=== PATIENT | female | born 1995 | race American Indian/Alaskan Native ===

== ENCOUNTER 2021-09-16 12:57 | Emergency (ER) | payer MEDICAID ==
[2021-09-16 13:16] VITALS: BP 141/83
[2021-09-16] MEDS ORDERED: HYDROmorphone 1 MG/1 ML INJ IV ONE ×3 (15:42→20:48)
--- NOTE | 2021-09-16 15:46 | Emergency Department Report ---
<BETO GRAY - Last Filed: 09/16/21 22:20> ED General Adult HPI - General Chief complaint: Fall Stated complaint: FALL Time Seen by Provider: 09/16/21 15:22 - Related Data Home Medications Medication Instructions Recorded Confirmed Last Taken Cyclobenzaprine [Flexeril] 10 mg PO TID PRN 09/16/21 09/16/21 Unknown Meloxicam [Mobic] 15 mg PO DAILY 09/16/21 09/16/21 Unknown Previous Rx's Medication Instructions Recorded Last Taken Type Acetaminophen [Non-Aspirin Extra 500 mg PO Q6HR PRN #30 tablet 09/16/21 Unknown Rx Strength] Ibuprofen [Motrin] 600 mg PO Q8H PRN #30 tablet 09/16/21 Unknown Rx Metoclopramide [Reglan] 10 mg PO QID PRN #30 tablet 09/16/21 Unknown Rx Allergies Allergy/AdvReac Type Severity Reaction Status Date / Time No Known Allergies Allergy Verified 09/16/21 13:12 ED Past Medical Hx - Medications Home Medications: Home Medications Medication Instructions Recorded Confirmed Last Taken Type Acetaminophen [Non-Aspirin Extra 500 mg PO Q6HR PRN #30 tablet 09/16/21 Unknown Rx Strength] Cyclobenzaprine [Flexeril] 10 mg PO TID PRN 09/16/21 09/16/21 Unknown History Ibuprofen [Motrin] 600 mg PO Q8H PRN #30 tablet 09/16/21 Unknown Rx Meloxicam [Mobic] 15 mg PO DAILY 09/16/21 09/16/21 Unknown History Metoclopramide [Reglan] 10 mg PO QID PRN #30 tablet 09/16/21 Unknown Rx ED Medical Decision Making - Medical Decision Making Patient signed out to me by Dr. Redding. Imaging results reviewed. No acute injury noted. Patient received additional pain medication and will be discharged with prescriptions prepped by Dr. Redding ED Disposition Clinical Impression: Closed head injury, Neck pain, Back pain, BMI greater than 40, Fall Disposition: 01 HOME / SELF CARE / HOMELESS Is pt being admited?: No Condition: Good Instructions: Back Pain in , Head Injury, Adult, [id number] Additional Instructions: As we discussed, pain typically gets worse before it gets better following and blunt trauma rest and avoid heavy lifting, and avoid strenuous physical activity. Engage in physical activities as tolerated. Do not engage in sports, or contact athletics until cleared to do so by her primary care doctor. For pain, the patient can take ibuprofen, 600 mg with food every 6 hours, alternating with acetaminophen, 650 mg every 4 hours, also which can be purchased [id number]. Return to the ER right away with new pain, worsened pain, migration of pain, fevers, chills, confusion, weakness, numbness, intractable nausea or vomiting, severe chest pain, or severe abdominal pain. Follow-up with your primary care doctor within the next week. Follow-up with a legal support specialist such as [facility] within the next week. Please return to the emergency room right away with new pain, worsened pain, migration of pain, projectile vomiting, change in mental status, confusion, inability tolerate liquid feeds, new, worsened or different symptoms not present on the initial emergency room evaluation Prescriptions: Ibuprofen [Motrin] 600 mg PO Q8H PRN #30 tablet PRN Reason: Pain Acetaminophen [Non-Aspirin Extra Strength] 500 mg PO Q6HR PRN #30 tablet PRN Reason: Pain , Severe (7-10) Metoclopramide [Reglan] 10 mg PO QID PRN #30 tablet PRN Reason: Nausea Referrals: [facility] [Provider Group] - 3-5 Days [facility] [Provider Group] - 3-5 Days Forms: Work/School Release Form(ED) <ANDREW REDDING - Last Filed: 09/18/21 15:10> ED General Adult HPI - General Source: patient, RN notes reviewed Mode of arrival: Ambulatory Limitations: No Limitations - History of Present Illness Initial comments: During the history and physical examination, I am chaperoned by nurse Gloria Kinney. The patient is a 26-year-old female with a past medical history of body mass ind ex of 40.7, who reports that she is not , reports that she has not delivered her given in the past 6 weeks, who presents to the ER today with of complaint of diffuse back pain, headache, and shoulder pain after mechanical fall down 15 stairs. Prior to the fall, the patient reports that she was in her usual state of health. The patient thinks that she passed out, but she is not sure. She denies weakness and numbness. Denies chest pain and abdominal pain. -: Sudden Location: head, neck, back Quality: aching Consistency: constant Improves with: rest Worsens with: movement ED Review of Systems ROS: Stated complaint: FALL Other details as noted in HPI Constitutional: denies: fever Eyes: denies: vision change ENT: denies: ear pain Respiratory: denies: wheezing Cardiovascular: denies: chest pain Gastrointestinal: denies: abdominal pain Musculoskeletal: arthralgia, myalgia Neurological: headache. denies: weakness ED Past Medical Hx - Past Medical History Previous Medical History?: No - Surgical History Past Surgical History?: No - Social History Smoking Status: Never Smoker Substance Use Type: None ED Physical Exam - General Limitations: Physical Limitation General appearance: alert, anxious, obese - Head Head exam: Present: atraumatic, normocephalic - Eye Eye exam: Present: normal appearance, EOMI. Absent: nystagmus - ENT ENT exam: Present: normal exam, normal orophraynx, mucous membranes moist, n ormal external ear exam - Neck Neck exam: Present: normal inspection, tenderness. Absent: meningismus - Respiratory Respiratory exam: Present: normal lung sounds bilaterally. Absent: respiratory distress, wheezes, rales, rhonchi, stridor, chest wall tenderness - Cardiovascular Cardiovascular Exam: Present: regular rate, normal rhythm, normal heart sounds. Absent: bradycardia, tachycardia, irregular rhythm, systolic murmur, diastolic murmur, rubs, gallop - GI/Abdominal GI/Abdominal exam: Present: soft. Absent: distended, tenderness, guarding, rebound, rigid, pulsatile mass - Extremities Exam Extremities exam: Present: normal inspection, full ROM, other (2+ pulses noted in the bilateral upper and lower extremities. There is no palpable cord. negative Homans sign. Muscular compartments are soft. The pelvis is stable.). Absent: pedal edema, calf tenderness - Back Exam Back exam: Present: normal inspection, paraspinal tenderness, vertebral tendern ess. Absent: tenderness, CVA tenderness (R), CVA tenderness (L) - Neurological Exam Neurological exam: Present: alert, oriented X3, other (No facial droop. Tongue midline. Extraocular movements intact bilaterally. Facial sensation intact to light touch in V1, V2, V3 distribution bilaterally. 5 and a 5 strength in 4 extremities. Sensation intact to light touch in 4 extremities.) - Psychiatric Psychiatric exam: Present: anxious - Skin Skin exam: Present: warm, dry, intact, normal color. Absent: rash ED Course Vital Signs 09/16/21 09/16/21 13:15 13:50 Temperature 97.9 F Pulse Rate 85 Respiratory 16 Rate Blood Pressure 141/83 [Left] O2 Sat by Pulse 98 99 Oximetry - Reevaluation(s) Reevaluation #1: 09/16/21 18:27 Differential diagnosis, including the not limited to: Closed head injury, sprain, strain, fracture, dislocation Assessment and plan: 26-year-old female, status post mechanical fall down 15 stairs, with headache, neck pain and back pain, clinically sober with a GCS of 15, who reports that she is not . Place patient on court monitor. Obtain stat CT scan of the brain, CT and L- spine. Maintain spinal precautions and C-spine immobilization. Treat patient's symptoms. Obtain x-ray of chest and pelvis. Discussed this with the patient. She is agreeable to this plan of care. Currently awaiting CT scan results. Care be transferred to the oncoming ER provider, to follow-up on CT scans, x-rays, and arrange for final disposition ED Medical Decision Making - Lab Data Vital Signs 09/16/21 09/16/21 13:15 13:50 Temperature 97.9 F Pulse Rate 85 Respiratory 16 Rate Blood Pressure 141/83 [Left] O2 Sat by Pulse 98 99 Oximetry - Radiology Data Radiology results: pending, report reviewed, image reviewed [facility] [address] [place] [address] Cat Scan Report Signed Patient: LEELEE PORTER MR#: [id number] : 1995 Acct:[id number] Age/Sex: 26 / F ADM Date: 09/16/21 Loc: ED Attending Dr: Ordering Physician: ANDREW REDDING MD Date of Service: 09/16/21 Procedure(s): CT cervical spine wo con Accession Number(s): [id number] cc: ANDREW REDDING MD CT cervical spine wo con INDICATION / CLINICAL INFORMATION: 26 years Female; Neck pain status post fall. TECHNIQUE: Axial CT images of the cervical spine were obtained. Sagittal and coronal reformatted images were produced. All CT scans at this location are performed using CT dose reduction for ALARA by means of automated exposure control. Some motion artifact. COMPARISON: None available. FINDINGS: POST-SURGICAL CHANGES: None. ALIGNMENT: Straightening of the cervical spine noted, which may be related to patient positioning. VERTEBRAE: No signs of fracture. Vertebral bodies are grossly normal in height throughout. No significant facet joint disease or osseous foraminal narrowing appreciated. INTRAVERTEBRAL DISCS: Disc spaces are fairly well-maintained throughout without significant canal stenosis. PARASPINAL SOFT TISSUES: No significant abnormality. ADDITIONAL FINDINGS: None. IMPRESSION: 1. No signs of acute bony trauma to the cervical spine. Signer Name: Rudy Dsouza MD, III Signed: 09/16/2021 8:08 PM Workstation Name: [id number] Transcribed By: HR Dictated By: Rudy Dsouza MD Electronically Authenticated By: Rudy Dsouza MD Signed Date/Time: 09/16/212007 DD/ 05 [facility] [address] [place] [address] Cat Scan Report Signed Patient: LEELEE PORTER MR#: [id number] : 1995 Acct:[id number] Age/Sex: 26 / F ADM Date: 09/16/21 Loc: ED Attending Dr: Ordering Physician: ANDREW REDDING MD Date of Service: 09/16/21 Procedure(s): CT lumbar spine wo con Accession Number(s): [id number] cc: ANDREW REDDING MD CT lumbar spine wo con INDICATION / CLINICAL INFORMATION: 26 years Female; Back pain status post fall. TECHNIQUE: Axial CT images of the lumbar spine were obtained. Sagittal and coronal reformatted images were produced. All CT scans at this location are performed using CT dose reduction for ALARA by means of automated exposure control. COMPARISON: None available. FINDINGS: POST- SURGICAL CHANGES: None. ALIGNMENT: There is slight anterolisthesis of L5 with respect to S1, related to bilateral spondylolysis-this finding appears to be on a chronic basis. VERTEBRAE: No signs of fracture. Vertebral bodies are grossly normal in height throughout. Minimal facet hypertrophy seen at various levels. Mild to moderate foraminal narrowing seen bilaterally at L5-S1, related to disc disease and minimal spondylosis, combined with the listhesis associated with spondylolysis. INTERVERTEBRAL DISCS: No dominant herniation or canal stenosis appreciated. Mild disc bulge is seen at L5-S1, with small left paracentral disc protrusion. Minimal disc bulge seen at L4-5. PARASPINAL SOFT TISSUES: No significant abnormality. ADDITIONAL FINDINGS: IUD noted. IMPRESSION: 1. No signs of acute bony trauma to the lumbar spine. 2. Bilateral spondylolysis seen at L5, with minimal spondylolisthesis. Signer Name: Rudy Dsouza MD, III Signed: 09/16/2021 8:15 PM Workstation Name: [id number] Transcribed By: Dictated By: Rudy Dsouza MD Electronically Authenticated By: Rudy Dsouza MD Signed Date/Time: 09/16/212014 DD/ [address] [address] XRay Report Signed Patient: LEELEE PORTER MR#: [id number] : 1995 Acct:[id number] Age/Sex: 26 / F ADM Date: 09/16/21 Loc: ED Attending Dr: Ordering Physician: ANDREW REDDING MD Date of Service: 09/16/21 Procedure(s): XR pelvis 1-2V Accession Number(s): [id number] cc: ANDREW REDDING MD Fluoro Time In Minutes: PELVIS 1 VIEW(S) INDICATION / CLINICAL INFORMATION: Fall downstairs, lower back pain COMPARISON: None available. FINDINGS: BONES / JOINT(S): No acute fracture or subluxation. No significant arthritis. SOFT TISSUES: No significant abnormality. ADDITIONAL FINDINGS: None. Signer Name: Damian Avila MD Signed: 09/16/2021 9:18 PM Workstation Name: [id number] Transcribed By: SB Dictated By: DAMIAN AVILA MD Electronically A uthenticated By: DAMIAN AVILA MD Signed Date/Time: 09/16/212117 DD/ [address] [address] XRay Report Signed Patient: LEELEE PORTER MR#: [id number] : 1995 Acct:[id number] Age/Sex: 26 / F ADM Date: 09/16/21 Loc: ED Attending Dr: Ordering Physician: ANDREW REDDING MD Date of Service: 09/16/21 Procedure(s): XR chest 1V ap Accession Number(s): [id number] cc: ANDREW REDDING MD Fluoro Time In Minutes: CHEST 1 VIEW INDICATION / CLINICAL INFORMATION: fallback pain. COMPARISON: None available. FINDINGS: SUPPORT DEVICES: None. HEART / MEDIASTINUM: No significant abnormality. LUNGS / PLEURA: No significant pulmonary or pleural abnormality. No pneumothorax. ADDITIONAL FINDINGS: No significant additional findings. IMPRESSION: 1. No acute findings. Signer Name: Damian Avila MD Signed: 09/16/2021 9:19 PM Workstation Name: [id number] Transcribed By: SB Dictated By: DAMIAN AVILA MD Electronically Authenticated By: DAMIAN AVILA MD Signed Date/Time: 09/16/212118 DD/ 18 [facility] [address] [place] [address] Cat Scan Report Signed Patient: LEELEE PORTER MR#: [id number] : 1995 Acct:[id number] Age/Sex: 26 / F ADM Date: 09/16/21 Loc: ED Attending Dr: Ordering Physician: ANDREW REDDING MD Date of Service: 09/16/21 Procedure(s): CT thoracic spine wo con Accession Number(s): [id number] cc: ANDREW REDDING MD . CT thoracic spine wo con INDICATION / CLINICAL INFORMATION: 26 years Female; Back pain status post. TECHNIQUE: Axial CT images of the thoracic spine were obtained. Sagittal and coronal reformatted images were produced. All CT scans at this location are performed using CT dose reduction for ALARA by means of automated exposure control. Motion artifact COMPARISON: None available. FINDINGS: POST-SURGICAL CHANGES: None. ALIGNMENT: No significant abnormality. VERTEBRAE: No signs of fracture. Vertebral bodies are grossly normal in height throughout. Presumed hemangiomata seen at T2, T4, T11, and T12. INTERVERTEBRAL D ISCS: No significant abnormality. PARASPINAL SOFT TISSUES: No significant abnormality. ADDITIONAL FINDINGS: None. IMPRESSION: 1. No signs of acute bony trauma to the thoracic spine. Signer Name: Rudy Dsouza MD, III Signed: 09/16/2021 8:12 PM Workstation Name: [email or web address] Transcribed By: HR Dictated By: Rudy Dsouza MD Electronically Authenticated By: Rudy Dsouza MD Signed Date/Time: 09/16/212011 DD/ [address] [address] Cat Scan Report Signed Patient: LEELEE PORTER MR#: [id number] : 1995 Acct:[id number] Age/Sex: 26 / F ADM Date: 09/16/21 Loc: ED Attending Dr: Ordering Physician: ANDREW REDDING MD Date of Service: 09/16/21 Procedure(s): CT head/brain wo con Accession Number(s): [id number] cc: ANDREW REDDING MD CT head/brain wo con INDICATION / CLINICAL INFORMATION: 26 years Female; Fall loss of consciousness, closed head injury. TECHNIQUE: Routine CT head without contrast. All CT scans at this location are performed using CT dose reduction for ALARA by means of automated exposure control. COMPARISON: None. FINDINGS: BRAIN / INTRACRANIAL CONTENTS: No acute hemorrhage, mass effect, midline shift, hydrocephalus, or acute, large territorial infarct. No signs of significant atrophy or chronic infarct. No significant white matter abnormality seen. CRANIOCERVICAL JUNCTION: No significant abnormality. ORBITS: No significant abnormality of visualized orbits. SINUSES / MASTOIDS: Visualized paranasal sinuses and mastoid air cells are essentially clear. ADDITIONAL FINDINGS: None. IMPRESSION: 1. No focal mass, hemorrhage, hydrocephalus, or acute, large territorial infarct. Signer Name: Rudy Dsouza MD, III Signed: 09/16/2021 8:06 PM Workstation Name: [id number] Transcribed By: HR Dictated By: Rudy Dsouza MD Electronically Authenticated By: Rudy Dsouza MD Signed Date/Time: 09/16/212005 DD/ [address] [address] Cat Scan Report Signed Patient: LEELEE PORTER MR#: [id number] : 1995 Acct:[id number] Age/Sex: 26 / F ADM Date: 09/16/21 Loc: ED Attending Dr: Ordering Physician: ANDREW REDDING MD Date of Service: 09/16/21 Procedure(s): CT cervical spine wo con Accession Number(s): [id number] cc: ANDREW REDDING MD CT cervical spine wo con INDICATION / CLINICAL INFORMATION: 26 years Female; Neck pain status post fall. TECHNIQUE: Axial CT images of the cervical spine were obtained. Sagittal and coronal reformatted images were produced. All CT scans at this location are performed using CT dose reduction for ALARA by means of automated exposure control. Some motion artifact. COMPARISON: None available. FINDINGS: POST-SURGICAL CHANGES: None. ALIGNMENT: Straightening of the cervical spine noted, which may be related to patient positioning. VERTEBRAE: No signs of fracture. Vertebral bodies are grossly normal in height throughout. No significant facet joint disease or osseous foraminal narrowing appreciated. INTRAVERTEBRAL DISCS: Disc spaces are fairly well-maintained throughout without significant canal stenosis. PARASPINAL SOFT TISSUES: No significant abnormality. ADDITIONAL FINDINGS: None. IMPRESSION: 1. No signs of acute bony trauma to the cervical spine. Signer Name: Rudy Dsouza MD, III Signed: 09/16/2021 8:08 PM Workstation Name: [email or web address] Transcribed By: HR Dictated By: Rudy Dsouza MD Electronically Authenticated By: Rudy Dsouza MD Signed Date/Time: 09/16/212007 DD/ 05 Critical care attestation.: If time is entered above; I have spent that time in minutes in the direct care of this critically ill patient, excluding procedure time. ED Disposition Is pt being admited?: No Does the pt Need Aspirin: No
--- NOTE | 2021-09-16 20:11 | Cat Scan Report ---
CT head/brain wo con INDICATION / CLINICAL INFORMATION: 26 years Female; Fall loss of consciousness, closed head injury. TECHNIQUE: Routine CT head without contrast. All CT scans at this location are performed using CT dos e reduction for ALARA by means of automated exposure control. COMPARISON: None. FINDINGS: BRAIN / INTRACRANIAL CONTENTS: No acute hemorrhage, mass effect, midline shift, hydrocephalus, or acu te, large territorial infarct. No signs of significant atrophy or chronic infarct. No significant whi te matter abnormality seen. CRANIOCERVICAL JUNCTION: No significant abnormality. ORBITS: No significant abnormality of visualized orbits. SINUSES / MASTOIDS: Visualized paranasal sinuses and mastoid air cells are essentially clear. ADDITIONAL FINDINGS: None. IMPRESSION: 1. No focal mass, hemorrhage, hydrocephalus, or acute, large territorial infarct. Signer Name: Rudy Dsouza MD, III Signed: 09/16/2021 8:06 PM Workstation Name: [id number]
--- NOTE | 2021-09-16 20:12 | Cat Scan Report ---
CT cervical spine wo con INDICATION / CLINICAL INFORMATION: 26 years Female; Neck pain status post fall. TECHNIQUE: Axial CT images of the cervical spine were obtained. Sagittal and coronal reformatted images were pr oduced. All CT scans at this location are performed using CT dose reduction for ALARA by means of aut omated exposure control. Some motion artifact. COMPARISON: None available. FINDINGS: POST-SURGICAL CHANGES: None. ALIGNMENT: Straightening of the cervical spine noted, which may be related to patient positioning. VERTEBRAE: No signs of fracture. Vertebral bodies are grossly normal in height throughout. No signif icant facet joint disease or osseous foraminal narrowing appreciated. INTRAVERTEBRAL DISCS: Disc spaces are fairly well-maintained throughout without significant canal eve nosis. PARASPINAL SOFT TISSUES: No significant abnormality. ADDITIONAL FINDINGS: None. IMPRESSION: 1. No signs of acute bony trauma to the cervical spine. Signer Name: uRdy Dsouza MD, III Signed: 09/16/2021 8:08 PM Workstation Name: [email or web address] [id number]
--- NOTE | 2021-09-16 20:16 | Cat Scan Report ---
. CT thoracic spine wo con INDICATION / CLINICAL INFORMATION: 26 years Female; Back pain status post. TECHNIQUE: Axial CT images of the thoracic spine were obtained. Sagittal and coronal reformatted images were pro duced. All CT scans at this location are performed using CT dose reduction for ALARA by means of auto mated exposure control. Motion artifact COMPARISON: None available. FINDINGS: POST-SURGICAL CHANGES: None. ALIGNMENT: No significant abnormality. VERTEBRAE: No signs of fracture. Vertebral bodies are grossly normal in height throughout. Presumed hemangiomata seen at T2, T4, T11, and T12. INTERVERTEBRAL DISCS: No significant abnormality. PARASPINAL SOFT TISSUES: No significant abnormality. ADDITIONAL FINDINGS: None. IMPRESSION: 1. No signs of acute bony trauma to the thoracic spine. Signer Name: Rudy Dsouza MD, III Signed: 09/16/2021 8:12 PM Workstation Name: [email or web address]
--- NOTE | 2021-09-16 20:19 | Cat Scan Report ---
CT lumbar spine wo con INDICATION / CLINICAL INFORMATION: 26 years Female; Back pain status post fall. TECHNIQUE: Axial CT images of the lumbar spine were obtained. Sagittal and coronal reformatted images were prod uced. All CT scans at this location are performed using CT dose reduction for ALARA by means of autom ated exposure control. COMPARISON: None available. FINDINGS: POST-SURGICAL CHANGES: None. ALIGNMENT: There is slight anterolisthesis of L5 with respect to S1, related to bilateral spondylolys is-this finding appears to be on a chronic basis. VERTEBRAE: No signs of fracture. Vertebral bodies are grossly normal in height throughout. Minimal facet hypertrophy seen at various levels. Mild to moderate foraminal narrowing seen bilateral ly at L5-S1, related to disc disease and minimal spondylosis, combined with the listhesis associated with spondylolysis. INTERVERTEBRAL DISCS: No dominant herniation or canal stenosis appreciated. Mild disc bulge is seen at L5-S1, with small left paracentral disc protrusion. Minimal disc bulge see n at L4-5. PARASPINAL SOFT TISSUES: No significant abnormality. ADDITIONAL FINDINGS: IUD noted. IMPRESSION: 1. No signs of acute bony trauma to the lumbar spine. 2. Bilateral spondylolysis seen at L5, with minimal spondylolisthesis. Signer Name: Rudy Dsouza MD, III Signed: 09/16/2021 8:15 PM Workstation Name: [email or web address]
[2021-09-16] MEDS ORDERED: KETOROLAC 30 MG/1 ML INJ IV ONE (20:48)
--- NOTE | 2021-09-16 21:23 | XRay Report ---
CHEST 1 VIEW INDICATION / CLINICAL INFORMATION: fallback pain. COMPARISON: None available. FINDINGS: SUPPORT DEVICES: None. HEART / MEDIASTINUM: No significant abnormality. LUNGS / PLEURA: No significant pulmonary or pleural abnormality. No pneumothorax. ADDITIONAL FINDINGS: No significant additional findings. IMPRESSION: 1. No acute findings. Signer Name: Damian Avila MD Signed: 09/16/2021 9:19 PM Workstation Name: [id number]
--- NOTE | 2021-09-16 21:23 | XRay Report ---
PELVIS 1 VIEW(S) INDICATION / CLINICAL INFORMATION: Fall downstairs, lower back pain COMPARISON: None available. FINDINGS: BONES / JOINT(S): No acute fracture or subluxation. No significant arthritis. SOFT TISSUES: No significant abnormality. ADDITIONAL FINDINGS: None. Signer Name: Damian Avila MD Signed: 09/16/2021 9:18 PM Workstation Name: [id number]
== END 2021-09-17 10:59 | disposition home or self-care (01) ==
LOC: ED 12:57
DX: S09.90XA Unspecified injury of head, initial encounter (principal); M54.2 Cervicalgia; M54.9 Dorsalgia, unspecified; Z68.41 Body mass index [BMI] 40.0-44.9, adult; W10.8XXA Fall (on) (from) other stairs and steps, initial encounter; Y93.89 Activity, other specified; Y92.89 Other specified places as the place of occurrence of the external cause; Y99.8 Other external cause status
CPT/HCPCS: 70450; 71045; 72125; 72128; 72131; 72170; 96374; 96375; 96376; 99284; J1170; J1885